=== PATIENT | female | born 1965 | race Caucasian/White ===

== ENCOUNTER 2016-05-29 13:00 | Inpatient (IN) ==
[2016-05-29 14:51] LABS: Basophils # (Auto) 0 K/mcL (0.0-0.3); Basophils % (Auto) 0.4 % (0.0-2.0); Eosinophils # (Auto) 0.2 K/mcL (0.0-0.7); Eosinophils % (Auto) 1.9 % (0.0-7.0); Granulocytes % (Auto) 73.7 % (38.0-78.0); Lymphocytes # (Auto) 1.4 K/mcL (1.5-4.8); Lymphocytes % (Auto) 17.3 % (15.5-49.0); Mean Cell Volume 82.1 fL (80.0-100.0); Mean Corpuscular HGB Conc 31.8 g/dL (31.0-36.0); Mean Corpuscular Hemoglobin 26.1 pg (26.0-34.0); Monocytes # (Auto) 0.6 K/mcL (0.1-0.9); Monocytes % (Auto) 6.7 % (1.0-9.0); Platelet Count 304 K/mcL (140-440); RBC 4.97 M/mcL (4.00-5.20); Red Cell Distribution Width 15.7 % (11.5-14.5)
[2016-05-29 15:38] LABS: Blood Urea Nitrogen 21 mg/dl (6-20)
[2016-05-29 16:06] LABS: Appearance,Urine HAZY; Bilirubin,Urine NEG (NEG); Color,Urine YELLOW; Glucose,Urine (UA) NEGATIVE (NEG); Leukocyte Esterase,Urine NEG /uL (NEG); Nitrate,Urine NEG (NEG); Protein,Urine NEG (NEG); Specific Gravity,Urine 1.028 (1.000-1.035); Urine Blood NEG mg/dL (<0.03); Urobilinogen,Urine NEG (NEG)
[2016-06-03] MEDS ORDERED: ceFAZolin 1 GM VIAL IV SCH (05:00)
[2016-06-03] MEDS ORDERED: PREGABALIN 150 MG CAPSULE PO SCH (05:00)
[2016-06-03] MEDS ORDERED: oxyCODONE 10 MG TAB.ER.12H PO SCH ×2 (05:00→21:00)
[2016-06-03] MEDS ORDERED: ACETAMINOPHEN 500 MG TABLET PO SCH (05:00)
[2016-06-03] MEDS ORDERED: KETOROLAC 30 MG, ROPIVACAINE HCL/PF 49.5 ML, EPINEPHrine 0.5 MG, 0.9 % SODIUM CHLORIDE ... IJ SCH (06:30)
[2016-06-03] MEDS ORDERED: FLEETS ADULT ENEMA PR PRN (15:46)
[2016-06-03] MEDS ORDERED: ONDANSETRON 4 MG/2 ML VIAL IV PRN ×3 (15:46→19:38)
[2016-06-03] MEDS ORDERED: TRANEXAMIC ACID 1,000 MG/10 ML VIAL IV ONE ×2 (15:46→16:10)
[2016-06-03] MEDS ORDERED: POLYETHYLENE GLYCOL 3350 17 GM PACKET PO PRN (15:46)
[2016-06-03] MEDS ORDERED: ACETAMINOPHEN 325 MG TABLET PO PRN ×2 (15:46→19:38)
[2016-06-03] MEDS ORDERED: HYDROcodone/APAP 10/325MG TABLET PO PRN (15:46)
[2016-06-03] MEDS ORDERED: HYDROmorphone 2 MG/ML SYRINGE IV PRN ×3 (15:46→19:38)
[2016-06-03] MEDS ORDERED: BISACODYL 10 MG SUPP.RECT PR PRN ×2 (15:46→19:38)
[2016-06-03] MEDS ORDERED: MAGNESIUM HYDROXIDE 30 ML ORAL.SUSP PO PRN (15:46)
[2016-06-03] MEDS ORDERED: BENZOCAINE/MENTHOL 1 LOZENGE PO PRN ×2 (15:46→17:38)
[2016-06-03] MEDS ORDERED: TEMAZEPAM 15 MG CAPSULE PO PRN (15:46)
--- NOTE | 2016-06-03 15:49 | Brief Operative Note ---
Date of procedure: 06/03/16 Pre-op diagnosis: right knee djd Post-op diagnosis: same Procedure: right tka Grafts/Implants: Yes Anesthesia: GETA Findings: all3 comp djd Surgeon: Viktor Harvey Assembler Fishing Floats: Tyrell Cadet Estimated blood loss (cc): 50 Tourniquet Time (Minutes): 65 Specimens Removed/Pathology: none sent Condition: stable Disposition: PACU
[2016-06-03] MEDS ORDERED: 0.45 % SODIUM CHLORIDE 1,000 ML IV SCH (16:00)
[2016-06-03] MEDS ORDERED: SUCCINYLCHOLINE 20 MG/ML ML IV ONE (16:10)
[2016-06-03] MEDS ORDERED: ATROPINE SULFATE 0.4 MG/ML VIAL IV ONE (16:10)
[2016-06-03] MEDS ORDERED: LIDOCAINE HCL/PF 100 MG/5 ML SYRINGE IV ONE (16:10)
[2016-06-03] MEDS ORDERED: fentaNYL 250 MCG/5 ML VIAL IV ONE (16:10)
[2016-06-03] MEDS ORDERED: MIDAZOLAM 5 MG/5 ML VIAL IV ONE (16:10)
[2016-06-03] MEDS ORDERED: PROPOFOL 200 MG/20 ML VIAL IV ONE (16:10)
[2016-06-03] MEDS ORDERED: GLYCOPYRROLATE 0.2 MG/ML VIAL IV ONE (16:10)
[2016-06-03] MEDS ORDERED: KETAMINE 100 MG/ML ML IV ONE (16:10)
[2016-06-03] MEDS ORDERED: DEXAMETHASONE 10 MG/ML VIAL IV ONE (16:10)
[2016-06-03] MEDS ORDERED: ONDANSETRON 4 MG/2 ML VIAL IV ONE (16:10)
[2016-06-03] MEDS ORDERED: PHENYLEPHRINE 10 MG/ML VIAL IV ONE (16:10)
[2016-06-03] MEDS ORDERED: EPINEPHrine 1 MG/ML (1:1000) VIAL IV ONE (16:10)
[2016-06-03] MEDS ORDERED: ePHEDrine 50 MG/ML AMPUL IV ONE (16:10)
[2016-06-03] MEDS ORDERED: GENTAMICIN SULFATE 800 MG/20 ML VIAL IR ONE (16:33)
[2016-06-03] MEDS ORDERED: fentaNYL 100 MCG/2 ML VIAL IV PRN (17:38)
[2016-06-03] MEDS ORDERED: LACTATED RINGERS 250 ML IV PRN (17:38)
[2016-06-03] MEDS ORDERED: NALOXONE HCL 0.4 MG/ML VIAL IV PRN (17:38)
[2016-06-03] MEDS ORDERED: ATROPINE SULFATE 0.4 MG/ML VIAL IV PRN (17:38)
[2016-06-03] MEDS ORDERED: METHOCARBAMOL 1,000 MG/10 ML VIAL IV PRN (17:38)
[2016-06-03] MEDS ORDERED: diphenhydrAMINE 50 MG/ML VIAL IV PRN (17:38)
[2016-06-03] MEDS ORDERED: FLUMAZENIL 0.1 MG/ML ML IV PRN (17:38)
[2016-06-03] MEDS ORDERED: METOCLOPRAMIDE 10 MG/2 ML VIAL IV PRN (17:38)
[2016-06-03] MEDS ORDERED: IPRATROPIUM/ALBUTEROL 3 ML AMPUL.NEB NEB PRN (17:38)
[2016-06-03] MEDS ORDERED: PROMETHAZINE 25 MG/ML VIAL IV PRN ×2 (17:38→21:35)
[2016-06-03] MEDS ORDERED: ePHEDrine 50 MG/ML AMPUL IV PRN (17:38)
[2016-06-03] MEDS ORDERED: MEPERIDINE 25 MG/ML SYRINGE IV PRN (17:38)
[2016-06-03] MEDS ORDERED: LACTATED RINGERS 1,000 ML IV SCH (17:45)
[2016-06-03] MEDS ORDERED: KETOROLAC 15 MG/ML VIAL IV SCH (18:00)
[2016-06-03] MEDS ORDERED: ACETAMINOPHEN 1,000 MG/100 ML BOTTLE IV SCH ×2 (18:00→19:00)
[2016-06-03 18:09] LABS: Creatine Kinase MB < 1.0 ng/ml (0-2.9)
--- NOTE | 2016-06-03 19:22 | XRay Report ---
CLINICAL INFORMATION: Postsurgical follow-up TECHNIQUE: Portable AP and lateral right knee COMPARISON: None. FINDINGS: Status post right total knee arthroplasty. Femoral and tibial complements are in anatomic positions. There is postsurgical soft tissue gas and intra-articular fluid. There are skin suze anteriorly. IMPRESSION: Status post right total knee arthroplasty Interpreted and Authenticated by: Daniel Cm 06/03/16
[2016-06-03] MEDS ORDERED: GLUCAGON,HUMAN RECOMBINANT 1 MG VIAL IV ONE ×3 (19:25→19:38)
[2016-06-03] MEDS ORDERED: ONDANSETRON 4 MG/2 ML VIAL ONE (19:50)
[2016-06-03] MEDS: 0.45 % SODIUM CHLORIDE 1,000 ML IV SCH (19:56)
[2016-06-03] MEDS ORDERED: SENNOSIDES 1 TABLET PO SCH (21:00)
[2016-06-03] MEDS: DOCUSATE SODIUM 100 MG CAPSULE PO SCH (21:00)
[2016-06-03] MEDS ORDERED: ASPIRIN 325 MG ENTERIC COATED TABLET PO SCH (21:00)
[2016-06-03] MEDS ORDERED: DOCUSATE SODIUM 100 MG CAPSULE PO SCH (21:00)
[2016-06-03] MEDS: ASPIRIN 325 MG ENTERIC COATED TABLET PO SCH (21:00)
[2016-06-03] MEDS: oxyCODONE 10 MG TAB.ER.12H PO SCH (21:00)
[2016-06-03 21:14] LABS: Mean Cell Volume 80.4 fL (80.0-100.0); Mean Corpuscular HGB Conc 33.5 g/dL (31.0-36.0); Mean Corpuscular Hemoglobin 26.9 pg (26.0-34.0); Platelet Count 290 K/mcL (140-440); RBC 4.94 M/mcL (4.00-5.20); Red Cell Distribution Width 14.3 % (11.5-14.5)
[2016-06-03] MEDS ORDERED: PROMETHAZINE 25 MG/ML VIAL ONE (21:36)
[2016-06-03 21:38] LABS: ALT/SGPT 31 U/l (0-40); Albumin 3.3 gm/dL (3.2-5.2); Albumin/Globulin Ratio 1.1 (1.0-2.3); Alkaline Phosphatase 73 U/L (39-117); Bilirubin,Direct < 0.2 mg/dL (0.0-0.3); Blood Urea Nitrogen 16 mg/dl (6-20); Gamma Glutamyl Transpeptidase 95 U/L (5-36); Phosphorous 3.7 mg/dL (2.7-4.5); Uric Acid 6.3 mg/dL (2.5-8.0)
[2016-06-03 21:42] LABS: Band Neutrophils % 1 % (0-10); Lymphocytes % 3 % (15-49); Platelet Estimate NORMAL (NORMAL); RBC Morphology NORMAL (NORMAL); Segmented Neutrophils % 96 % (38-78)
[2016-06-03] MEDS ORDERED: 0.9 % SODIUM CHLORIDE 10 ML SYRINGE IV SCH (22:00)
--- NOTE | 2016-06-03 22:10 | History and Physical Report ---
DATE OF ADMISSION: 06/03/2016 PRIMARY CARE PHYSICIAN: Kristin Dos Santos MD DATE OF CONSULTATION: 06/03/2016 REASON FOR CONSULTATION: Intraoperative bradycardia, hypotension. HISTORY OF CHIEF COMPLAINT: Helga is a 50-year-old who underwent right total knee arthroplasty performed by Dr. Viktor Harvey. Intraoperatively the patient's blood pressures dropped to 60s, along with heart rate dropping to 30s. She was started on a pacer pad along with 2 doses of atropine, followed by epinephrine. The patient underwent surgery and during the postoperative recovery phase, her heart rate was in the 40s. Hospitalist Service was consulted for postoperative evaluation for bradycardia. At the time of examination, the patient is alert. She is extubated. She was able to provide some of the history. She denies chest pain, lightheadedness, dizziness. Her heart rate has been variable between mid 40s to high 40s. She is nondistressed, afebrile. REVIEW OF SYSTEMS: Unremarkable. PAST MEDICAL HISTORY: 1. History of anxiety disorder. 2. Hyperlipidemia. 3. Hypertension. CURRENT MEDICATIONS: Lexapro 20 daily. Simvastatin 10 at bedtime. Propranolol 240 daily. Meloxicam 15 daily. Triamterene/hydrochlorothiazide 75/50 daily. SOCIAL HISTORY: The patient works at [employer]. She is a FULL CODE STATUS. Sees primary care physician, Mary Dos Santos. No history of smoking or alcoholism. FAMILY HISTORY: Mother with arrhythmia; however, no other history of CVAs, coronary artery disease, cancer. PHYSICAL EXAMINATION: GENERAL: The patient appears nondistressed, alert, oriented. BMI is 66. Height 5 feet 4 inches. VITAL SIGNS: Blood pressure 141/89, respiratory rate 16, temperature 97.3, pulse variable between low 40s to mid 60s. Saturations 97 percent on 2 liters of oxygen. HEENT EXAMINATION: No obvious ear or nose discharge. Oral cavity dry. CHEST: S1, S2. Occasionally irregular rhythm. No murmur appreciated. Diminished breath sounds at bases. ABDOMEN: Soft and nontender. LOWER EXTREMITY EXAMINATION: No cyanosis or clubbing. No joint swelling. Right knee postoperative dressing. SKIN: No suspicious lesions. PSYCHIATRIC: Alert and cooperative. No anxiety or agitation. NEURO EXAMINATION: Limited neuro examination. Normal higher function. Moving all four extremities. LABS AND IMAGING: White count 8.3, hemoglobin 13. INR 1. Sodium 142, potassium 3.9, creatinine 0.6 as of 05/29. UA unremarkable. Repeat labs pending. ASSESSMENT AND PLAN: A 50-year-old status post right total knee arthroplasty. Hospitalist consult for management of postoperative hypotension/bradycardia: 1. Postoperative bradycardia, likely secondary to anesthesia induced and history of long-acting propranolol use. The patient received 2 doses of atropine along with epinephrine. Heart rate is currently in the mid 40s. I discussed the case with Dr. Reina, terrazzo laborer at [facility], who recommended continued monitoring and this episode should self-resolve once anesthesia wears off. The patient will be given 5 mg of glucagon and avoid BETA INA for now. She will require outpatient cardiology followup on discharge. At this time, there are no significant EKG changes. Continue telemonitoring overnight in intensive care unit. 2. Other prior medical issues. Restart home medications including hyperlipidemia, continue statin; hypertension, continue triamterene and hydrochlorothiazide; anxiety disorder, continue Lexapro. Hold beta ina. Thank you so much for consult. AA:edu Job ID: [id number] Doc ID: [id number] Clint MERA
[2016-06-03] MEDS ORDERED: LORazepam 2 MG/ML VIAL IV PRN (22:51)
[2016-06-04] MEDS: ACETAMINOPHEN 1,000 MG/100 ML BOTTLE IV SCH ×3 (01:44→14:06)
[2016-06-04 05:45] LABS: Mean Cell Volume 82.5 fL (80.0-100.0); Mean Corpuscular HGB Conc 31.9 g/dL (31.0-36.0); Mean Corpuscular Hemoglobin 26.3 pg (26.0-34.0); Platelet Count 265 K/mcL (140-440); Red Cell Distribution Width 15.2 % (11.5-14.5)
[2016-06-04 06:06] LABS: ALT/SGPT 27 U/l (0-40); Albumin 2.9 gm/dL (3.2-5.2); Albumin/Globulin Ratio 0.9 (1.0-2.3); Alkaline Phosphatase 69 U/L (39-117); Bilirubin,Direct < 0.2 mg/dL (0.0-0.3); Blood Urea Nitrogen 16 mg/dl (6-20); Gamma Glutamyl Transpeptidase 83 U/L (5-36); Uric Acid 6.7 mg/dL (2.5-8.0)
[2016-06-04 06:58] LABS: Anisocytosis 1+ (NONE SEEN); Band Neutrophils % 3 % (0-10); Monocytes % (Manual) 2 % (1-9); Platelet Estimate NORMAL (NORMAL); RBC Morphology ABNORM (NORMAL); Segmented Neutrophils % 95 % (38-78)
--- NOTE | 2016-06-04 07:59 | Operative Note ---
DATE OF OPERATION: 06/03/2016 PREOPERATIVE DIAGNOSIS: Right knee degenerative arthritis, with severe obesity. POSTOPERATIVE DIAGNOSIS: Right knee degenerative arthritis, with severe obesity. PROCEDURE: Right total knee arthroplasty using the GEORGE Robot. TOURNIQUET TIME: 63 minutes. ESTIMATED BLOOD LOSS: About 50 mL. COMPLICATIONS: The only complication was the patient went into bradycardia about 10 minutes into the case. The patient went into reverse Trendelenburg and we gave her compressors and her rate then came up to about 50. Her pressure is now stabilized and she will go to ICU. IMPLANTS: Both cemented, [place] size 3 femur, size 3 tibia with an 11 mm poly and 33 mm patellar button. Bone quality was soft. DESCRIPTION OF PROCEDURE: The patient was brought to the operating room and put to sleep with general LMA anesthesia. Once asleep, the patient had the right leg sterilely prepped and draped in the usual sterile fashion. Once done, we then placed Ioban over the skin and made a midline incision and mid vastus approach performed. We entered the joint which revealed severe arthritis throughout with collapse and hemarthrosis quite evident. There was a bloody effusion within the knee. We performed a synovectomy and then placed intraarticular pins, placed two pins above and below the knee, placed the arrays with the stabilizers. We registered the center hip rotation and registered the medial and lateral malleoli, registered 30 points within the joint, both on femur and tibia. Once done, we then balanced the knee both in flexion and extension. This balanced at 19 mm, both in flexion and extension For the standard we went ahead and brought in the robot and registered the robot and then made the distal femoral cut and posterior chamfer cuts. Once done, I then made the posterior and anterior femur cuts and then anterior chamfer cut was then made with the robot. The robot was then registered again and the tibial intra-articular pin was registered. Once we confirmed these locations, we registered. We then brought the robot in and made the tibial cut. Once done, we then removed the bony fragment, removed the remnants of the meniscus and osteophytes posteriorly. We punched into place a size 3 tibial baseplate after we set rotation using the computer. Once in place, we then placed size 3 femur and trialed the components with an 11 mm poly. As templated, the knee had full range of motion and was in anatomic position. We then irrigated and prepared the patella. It measured 21 mm in total thickness. We then cut the patella to about 13.5 mm in thickness and placed a 33 mm patellar button because of the severity of the wear to restore anatomy. All components tracked well and the knee was stable throughout. Because of fat in the back of the leg, the knee only could flex to 90 degrees, extension was easily achieved. We then cemented into place the above-mentioned sizes with a 50 mm stem on the tibia for extra stability. We preserved the posterior cruciate ligament and the femur component was implanted. Excessive cement was removed, both in flexion and extension and we took the knee and kept it at 45 degrees after we placed the patellar component, 33 mm cemented component. The bone was prepared with pulse lavage, dry lapse and then CarboJet to dry the bone and then rewashed once more before we cemented. Excellent cement penetration, excellent technique throughout. We irrigated, closed the fascial layer and deflated the tourniquet. Blood loss about 50 mL. We closed the fascial layer and mid vastus approach with #2 FiberWire and #2 double-armed Maxon. Skin was closed with a deep layer of 0 Vicryl and 2-0 Vicryl and then the superficial layer was closed with suze. A sterile bandage was applied. At the end of the case patient's pulse rate was 52 and had stabilized from the initial portion of the case. At this point, the hospitalist was consulted and she will go directly to the ICU. The family located in the waiting room was notified and will be around to see the patient once awake. They were notified that she may not be extubated prior to arriving in the ICU and she is at high risk given her morbid obesity. The surgery did go well but her medical problems are many. JESÚS:hanna Job ID: [id number] Doc ID: [id number] Viktor Harvey MD
[2016-06-04] MEDS: ASPIRIN 325 MG ENTERIC COATED TABLET PO SCH ×2 (08:55→20:45)
[2016-06-04] MEDS: DOCUSATE SODIUM 100 MG CAPSULE PO SCH ×2 (08:57→20:45)
[2016-06-04] MEDS: oxyCODONE 10 MG TAB.ER.12H PO SCH (08:57)
--- NOTE | 2016-06-04 11:13 | Internal Med Progress Note ---
Medical - PN: Subj Patient information: Note initiated : 06/04/16 at 11:10 am Service Date, if different from initiated Date: [] Patient: Helga Mcfarlane 50 y/o F admitted on 06/03/16 for Right Total Knee Arthroplasty- Robotic. Chief Complaint: [] Interval history: 06/03- postoperative consult for bradycardia hypotension. History of anxiety disorder on long-acting beta ina. patient received intraoperative2 doses of atropine/1 dose epinephrine. Patient admitted to ICU postoperatively. Heart rate in mid 40s. Responded to glucagon without improving 70s. Case discussed with [facility] cardiology Dr. Vanessa who recommended close monitoring and likely an adverse reaction to anesthesia and would not require emergent pacemaker unless persistent bradycardia despite beta ina discontinuation 06/04- patient overnight asymptomatic. No further episodes of bradycardia. Clinically improved. No further reconditioning phosphorus service except for beta ina needs to be held for at least 72 hours followed by reinitiation at half dose. hospitalist service signing off - Constitutional Vitals: Vital Signs Temp Pulse Resp BP Pulse Ox 98.9 F 75 22 120/75 95 06/04/16 08:00 06/04/16 09:03 06/04/16 10:00 06/04/16 10:00 06/04/16 10:00 Period Temp Pulse Resp BP Sys/Burnett Pulse Ox Last 24 Hr 96.5 F-98.9 F 49-76 11-32 91-152/68-97 81-100 Intake and Output 06/03/16 06/04/16 06/04/16 21:59 05:59 13:59 Intake Total 2600 / 2600 250 / 250 220 / 220 Output Total 530 / 530 865 / 865 540 / 540 Balance 2069 -615 / -615 -320 / -320 Weight 379 lb 1.6 oz Intake & Output: Intake & Output 06/03/16 06/04/16 06/04/16 21:59 05:59 13:59 Intake Total 2600 / 2600 250 / 250 220 / 220 Output Total 530 / 530 865 / 865 540 / 540 Balance 2069 -615 / -615 -320 / -320 Weight 379 lb 1.6 oz Intake: IV 100 / 100 100 / 100 100 / 100 Oral 150 / 150 120 / 120 IV - Manual Only 2500 / 2500 Output: Urine Catheter Amount 480 / 480 865 / 865 540 / 540 Estimated Blood Loss 50 / 50 Other: Meal snack Nourishment/Supplement Percent of Meal Consumed 100% 75% Feeding Ability Assist with Tray Set Up General appearance: morbidly obese, no acute distress Exam: Alert oriented nonlabored breathing no telemetry events No anxiety Medical - PN: Obj Da - Labs CBC & Chem 7: 06/04/16 04:11 06/04/16 04:11 Labs: Abnormal Lab Results 06/04/16 06/04/16 06/03/16 04:11 04:11 20:40 WBC 14.8 H RDW 15.2 H Seg Neutrophils % 95 H Lymphocytes % RBC Morphology Abnorm A Anisocytosis 1+ A Glucose 135 H 145 H GGT 83 H 95 H Lactate Dehydrogenase 263 H Albumin 2.9 L Albumin/Globulin Ratio 0.9 L 06/03/16 20:40 WBC 18.7 H RDW Seg Neutrophils % 96 H Lymphocytes % 3 L RBC Morphology Anisocytosis Glucose GGT Lactate Dehydrogenase Albumin Albumin/Globulin Ratio Meds: Medications Acetaminophen (Tylenol) 650 mg PO Q6HP PRN PRN Reason: PAIN/FEVER > 101 Aspirin (Ecotrin) 325 mg PO BID [facility] Last Admin: 06/04/16 08:55 Dose: 325 mg Bisacodyl (Dulcolax) 10 mg [place] Q2-3DAYS PRN PRN Reason: Constipation Docusate Sodium (Colace) 100 mg PO BID [facility] Last Admin: 06/04/16 08:57 Dose: 100 mg Hydromorphone HCl (Dilaudid) 0 mg IV Q2HP PRN PRN Reason: Pain Last Admin: 06/04/16 00:31 Dose: 1 mg Sodium Chloride (Sodium Chloride 0.45%) 1,000 mls @ 50 mls/hr IV .Q20H [facility] Stop: 06/05/16 07:59 Last Admin: 06/03/16 19:56 Dose: 50 mls/hr Acetaminophen (Ofirmev) 1,000 mg in 100 mls @ 200 mls/hr IV Q6H [facility] Stop: 06/04/16 18:29 Last Infusion: 06/04/16 08:43 Dose: Infused Lorazepam (Ativan) 0.5 - 1 mg IV Q4-6HP PRN PRN Reason: ANXIETY/SEDATION Ondansetron HCl (Zofran) 4 mg IV Q4HP PRN PRN Reason: Nausea And Vomiting Oxycodone HCl (Oxycontin) 10 mg PO BID [facility] Stop: 06/04/16 21:01 Last Admin: 06/04/16 08:57 Dose: 10 mg Promethazine HCl (Phenergan) 6.25 mg IV Q6HP PRN PRN Reason: Nausea And Vomiting Medical - PN: A/P - Time Spent With Patient Total time spent is greater than 50% in coordination of care (as documented) at patient's floor/unit and/or counseling patient: 15 - 24 minutes (1) Symptomatic bradycardia Status: Acute Assessment and plan: * Symptomatic bradycardia- secondary to underlying beta ina use/anesthesia effect. Fully resolved. Off beta ina. No overnight telemetry events. * hypotension secondary to bradycardia fully resolved. Systolics at goal * Postop day 1 right total knee arthroplasty. Managed by orthopedics Plan * Hold beta ina and restart at half dose after 72 hours * Cardiology consult as outpatient * No further recommendation from hospitalist service-signing off Current Visit: Yes Medical - PN: Qual - Stroke Symptom Onset Unknown: No - VTE Deep Vein Thrombosis/Pulmonary Embolism Present on Admission: No
[2016-06-04] MEDS ORDERED: PROMETHAZINE 25 MG/ML VIAL IV PRN (16:44)
[2016-06-04] MEDS ORDERED: ONDANSETRON 4 MG/2 ML VIAL IV PRN (16:44)
[2016-06-04] MEDS ORDERED: BISACODYL 10 MG SUPP.RECT PR PRN (16:44)
[2016-06-04] MEDS ORDERED: LORazepam 2 MG/ML VIAL IV PRN (16:44)
[2016-06-04] MEDS ORDERED: ACETAMINOPHEN 1,000 MG/100 ML BOTTLE IV SCH (18:00)
[2016-06-04] MEDS ORDERED: oxyCODONE 10 MG TAB.ER.12H PO SCH (21:00)
[2016-06-04] MEDS: 0.45 % SODIUM CHLORIDE 1,000 ML IV SCH (22:33)
[2016-06-05] MEDS: ACETAMINOPHEN 325 MG TABLET PO PRN ×2 (00:58→08:15)
[2016-06-05] MEDS: HYDROmorphone 2 MG/ML SYRINGE IV PRN ×4 (02:41→20:15)
[2016-06-05 05:49] LABS: Mean Cell Volume 81.8 fL (80.0-100.0); Mean Corpuscular HGB Conc 32.5 g/dL (31.0-36.0); Mean Corpuscular Hemoglobin 26.6 pg (26.0-34.0); Platelet Count 247 K/mcL (140-440); RBC 3.98 M/mcL (4.00-5.20); Red Cell Distribution Width 15.5 % (11.5-14.5)
[2016-06-05 06:10] LABS: ALT/SGPT 19 U/l (0-40); Albumin 3.1 gm/dL (3.2-5.2); Albumin/Globulin Ratio 1.2 (1.0-2.3); Alkaline Phosphatase 60 U/L (39-117); Bilirubin,Direct < 0.2 mg/dL (0.0-0.3); Blood Urea Nitrogen 18 mg/dl (6-20); Gamma Glutamyl Transpeptidase 57 U/L (5-36); Phosphorous 3.5 mg/dL (2.7-4.5); Uric Acid 7.3 mg/dL (2.5-8.0)
[2016-06-05 07:39] LABS: Eosinophils % (Manual) 2 % (0-7); Lymphocytes % 24 % (15-49); Monocytes % (Manual) 11 % (1-9); Platelet Estimate NORMAL (NORMAL); RBC Morphology NORMAL (NORMAL); Segmented Neutrophils % 63 % (38-78)
[2016-06-05] MEDS: ASPIRIN 325 MG ENTERIC COATED TABLET PO SCH ×2 (08:15→20:23)
[2016-06-05] MEDS: DOCUSATE SODIUM 100 MG CAPSULE PO SCH ×2 (08:15→20:23)
[2016-06-05] MEDS: oxyCODONE/APAP 5/325MG TABLET PO PRN ×3 (14:53→23:16)
--- NOTE | 2016-06-05 18:27 | Orthopedic Progress Note ---
Subjective Patient information: Note initiated : 06/05/16 at 6:26 pm Service Date, if different from initiated Date: [] Patient: Helga Mcfarlane 50 y/o F admitted on 06/03/16 for Right Total Knee Arthroplasty- Robotic. Chief Complaint: [feels good and walking 100 plus feet ] Objective Vital signs: Vital Signs Temp Pulse Pulse Resp BP Pulse Ox 06/05/16 15:44 98.2 F 97 H 18 123/67 96 06/05/16 12:00 97.2 F L 86 16 112/63 92 06/05/16 08:07 20 06/05/16 07:27 78 94 06/05/16 06:37 96.8 F L 20 108/72 94 06/05/16 03:00 98.4 F 84 24 105/67 91 06/05/16 00:00 98.1 F 86 24 110/64 92 06/04/16 19:56 98.0 F 89 24 116/73 92 06/04/16 19:00 92 Intake and Output 06/05/16 06/05/16 06/05/16 05:59 13:59 21:59 Intake Total 100 / 100 360 / 360 960 / 960 Output Total 1000 / 1000 500 / 500 Balance -900 / -900 -140 / -140 960 / 960 Intake: Oral 100 / 100 360 / 360 960 / 960 Output: Void Amount 1000 / 1000 500 / 500 Other: Meal Breakfast Dinner Percent of Meal Consumed 100% 100% Feeding Ability Independent Independent Intake & Output: Intake & Output 06/05/16 06/05/16 06/05/16 05:59 13:59 21:59 Intake Total 100 / 100 360 / 360 960 / 960 Output Total 1000 / 1000 500 / 500 Balance -900 / -900 -140 / -140 960 / 960 Intake: Oral 100 / 100 360 / 360 960 / 960 Output: Void Amount 1000 / 1000 500 / 500 Other: Meal Breakfast Dinner Percent of Meal Consumed 100% 100% Feeding Ability Independent Independent Incision: Yes healing Incision clean and dry: Yes Dressing: Yes clean Weight bearing status: full Neurological exam IM: Yes oriented X3, Yes neurovascular intact Extremities exam IM: Yes normal inspection, Yes pedal edema, Yes Foot pink and warm, Yes neurovascular intact (dc home in am) - Labs CBC & BMP: 06/05/16 04:30 06/05/16 04:30 Labs: Orthopedic Labs 05/29/16 13:52 PT 13.1 INR 1.0 APTT 28 06/05/16 06/04/16 06/03/16 04:30 04:11 20:40 Hgb 10.6 L 12.1 13.3 Hct 32.5 L 37.9 39.7 05/29/16 13:52 Hgb 13.0 Hct 40.8
--- NOTE | 2016-06-05 18:30 | Discharge Summary ---
Ortho Discharge - TKA - Patient Instructions Diet: Regular Diet Activity: activity as tolerated, weight bearing as tolerated Total Knee Protocol: For Total Knee: Start ROM MICHELL with stationary bike or rocking chair. Work on gaining full extension of knee. Posterior dislocation precautions provided. Hip abductor strengthening and gait training instructions provided. Apply Cryocuff as instructed. Dressing Care: Aquacel Ag - leave on for 5 days Patient Education: Total Knee Replacement (DC) Additional Instructions: Discharge Instructions: Do the exercises at home that physical therapy gave you. You are scheduled to start physical therapy at [facility] ([phone]) on May Take your prescription, photo ID, insurance cards, and current medication list with you to your first physical therapy appointment. Take your prescription to pick up man any medication or equipment (such as walker, crutches, toilet riser or C.P.M.) Wear comfortable clothing for your physical therapy. Weight bearing as tolerated. You have the Aquacel Ag dressing, leave in place for 7 days then remove. If dressing becomes soiled (turns black), remove and use gauze 4x4 dressing and silvasorb ointment and change daily. Keep incision clean and dry. You may start showering on post op day #2. To avoid constipation while taking any narcotic pain medication, take an over the counter stool softener/laxative. Use your Cryocuff or ice packs as directed, on for 20 minutes at a time throughout the day. This and elevation will help with pain and swelling. Call your physician for fevers above 100.5 or pain not controlled by medication. Your prescriptions are with your discharge information. Some medications were electronically transmitted to your pharmacy of choice. - Follow Up Plan Follow Up Appointments: Viktor Harvey MD [Physician] - 06/18/16 1:40 pm Disposition: Home Health Service Prognosis: Good Rehab Potential: Good I certify that the patient requires SNF services: Yes Overall status at discharge: patient is progressing back to baseline - Orders For Discharge Prescriptions: Aspirin [Ecotrin] 325 mg PO BID #30 tab.ec oxyCODONE/APAP [Percocet 5-325 mg] 1 - 2 tab PO Q4-6HP PRN #60 tablet PRN Reason: Pain
[2016-06-06 06:04] LABS: Mean Cell Volume 82.7 fL (80.0-100.0); Mean Corpuscular HGB Conc 31.8 g/dL (31.0-36.0); Mean Corpuscular Hemoglobin 26.3 pg (26.0-34.0); Platelet Count 253 K/mcL (140-440); RBC 4.02 M/mcL (4.00-5.20); Red Cell Distribution Width 15.8 % (11.5-14.5)
[2016-06-06 06:34] LABS: ALT/SGPT 17 U/l (0-40); Albumin 2.9 gm/dL (3.2-5.2); Alkaline Phosphatase 59 U/L (39-117); Bilirubin,Direct < 0.2 mg/dL (0.0-0.3); Blood Urea Nitrogen 19 mg/dl (6-20); Gamma Glutamyl Transpeptidase 54 U/L (5-36); Phosphorous 3.5 mg/dL (2.7-4.5)
--- NOTE | 2016-06-06 06:39 | Orthopedic Progress Note ---
Subjective Patient information: Note initiated : 06/06/16 at 6:38 am Service Date, if different from initiated Date: [] Patient: Helga Mcfarlane 50 y/o F admitted on 06/03/16 for Right Total Knee Arthroplasty- Robotic. Chief Complaint: [min pain] Objective Vital signs: Vital Signs Temp Pulse Pulse Resp BP Pulse Ox 06/06/16 04:00 97.7 F 81 22 125/71 96 06/05/16 23:42 98.5 F 90 24 108/60 98 06/05/16 20:00 98.1 F 99 H 24 113/69 94 06/05/16 15:44 98.2 F 97 H 18 123/67 96 06/05/16 12:00 97.2 F L 86 16 112/63 92 06/05/16 08:07 20 06/05/16 07:27 78 94 Intake and Output 06/05/16 06/06/16 06/06/16 21:59 05:59 13:59 Intake Total 960 / 960 100 / 100 Output Total 350 / 350 400 / 400 Balance 610 / 610 -300 / -300 Intake: Oral 960 / 960 100 / 100 Output: Void Amount 350 / 350 400 / 400 Other: Meal Dinner Percent of Meal Consumed 100% Feeding Ability Independent Weight 377 lb Intake & Output: Intake & Output 06/05/16 06/06/16 06/06/16 21:59 05:59 13:59 Intake Total 960 / 960 100 / 100 Output Total 350 / 350 400 / 400 Balance 610 / 610 -300 / -300 Weight 377 lb Intake: Oral 960 / 960 100 / 100 Output: Void Amount 350 / 350 400 / 400 Other: Meal Dinner Percent of Meal Consumed 100% Feeding Ability Independent Incision: Yes healing Incision clean and dry: Yes Dressing: Yes clean Weight bearing status: full Neurological exam IM: Yes oriented X3, Yes neurovascular intact Extremities exam IM: Yes Foot pink and warm, Yes neurovascular intact - Labs CBC & BMP: 06/06/16 04:32 06/06/16 04:32 Labs: Orthopedic Labs 05/29/16 13:52 PT 13.1 INR 1.0 APTT 28 06/06/16 06/05/16 06/04/16 04:32 04:30 04:11 Hgb 10.6 L 10.6 L 12.1 Hct 33.3 L 32.5 L 37.9 06/03/16 05/29/16 20:40 13:52 Hgb 13.3 13.0 Hct 39.7 40.8
[2016-06-06] MEDS: oxyCODONE/APAP 5/325MG TABLET PO PRN ×3 (06:55→15:27)
--- NOTE | 2016-06-06 07:11 | Discharge Summary ---
Ortho Discharge - TKA - Patient Instructions Diet: Regular Diet Activity: activity as tolerated, weight bearing as tolerated Total Knee Protocol: For Total Knee: Start ROM MICHELL with stationary bike or rocking chair. Work on gaining full extension of knee. Posterior dislocation precautions provided. Hip abductor strengthening and gait training instructions provided. Apply Cryocuff as instructed. Dressing Care: Aquacel Ag - leave on for 5 days Patient Education: Total Knee Replacement (DC) Additional Instructions: Discharge Instructions: Do the exercises at home that physical therapy gave you. You are scheduled to start physical therapy at [facility] ([phone]) on May Take your prescription, photo ID, insurance cards, and current medication list with you to your first physical therapy appointment. Take your prescription to picking table worker any medication or equipment (such as walker, crutches, toilet riser or C.P.M.) Wear comfortable clothing for your physical therapy. Weight bearing as tolerated. You have the Aquacel Ag dressing, leave in place for 7 days then remove. If dressing becomes soiled (turns black), remove and use gauze 4x4 dressing and silvasorb ointment and change daily. Keep incision clean and dry. You may start showering on post op day #2. To avoid constipation while taking any narcotic pain medication, take an over the counter stool softener/laxative. Use your Cryocuff or ice packs as directed, on for 20 minutes at a time throughout the day. This and elevation will help with pain and swelling. Call your physician for fevers above 100.5 or pain not controlled by medication. Your prescriptions are with your discharge information. Some medications were electronically transmitted to your pharmacy of choice. - Follow Up Plan Follow Up Appointments: Viktor Harvey MD [Physician] - 06/18/16 1:40 pm Disposition: Home Health Service Prognosis: Good Rehab Potential: Good I certify that the patient requires SNF services: Yes Overall status at discharge: patient is progressing back to baseline - Orders For Discharge Prescriptions: Aspirin [Ecotrin] 325 mg PO BID #30 tab.ec oxyCODONE/APAP [Percocet 5-325 mg] 1 - 2 tab PO Q4-6HP PRN #60 tablet PRN Reason: Pain Additional Discharge Orders: Physical Therapy at Discharge - TKA Location: Determined By Patient Toilet Riser Discharge Order Location: Determined By Patient Walker Location: Determined By Patient
[2016-06-06 07:49] LABS: Eosinophils % (Manual) 2 % (0-7); Lymphocytes % 20 % (15-49); Monocytes % (Manual) 9 % (1-9); Platelet Estimate NORMAL (NORMAL); RBC Morphology NORMAL (NORMAL); Segmented Neutrophils % 69 % (38-78)
[2016-06-06] MEDS: ASPIRIN 325 MG ENTERIC COATED TABLET PO SCH (08:54)
[2016-06-06] MEDS: DOCUSATE SODIUM 100 MG CAPSULE PO SCH (08:54)
== END 2016-06-06 16:25 | disposition home health service (06) | DRG 470 ==
LOC: MEDSUR 06-03 10:45 → ICU 06-03 18:27 → MEDSUR 06-04 16:25
PROVIDERS: ADMIT Orthopaedic Surgery; ATTEND Orthopaedic Surgery